=== PATIENT | female | born 2000 | race Caucasian/White ===

== ENCOUNTER 2024-12-12 08:18 | Inpatient (IN) ==
[2024-12-12] MEDS ORDERED: OXYTOCIN 30 UNITS/NSS 30 UNITS/500 ML BAG IV PRN (08:52)
[2024-12-12] MEDS ORDERED: LACTATED RINGER'S 1,000 ML IV PRN (08:52)
[2024-12-12] MEDS ORDERED: LIDOCAINE 1% LOCAL 20 ML VIAL INFIL PRN (08:52)
[2024-12-12 09:43] LABS: Hematocrit (blood only) 34.9 % (37.0-47.0); Mean Corpuscular Hemoglobin 29.1 pg (25.0-34.0); Mean Corpuscular Hgb Conc 34.4 g/dL (32.0-36.0); Mean Corpuscular Volume 84.7 fL (80.0-100.0); Mean Platelet Volume 12.5 fL (9.4-12.4); Platelet Count 220 K/uL (130-400); RDW Coefficient of Variation 13.7 % (11.5-14.5); RDW Standard Deviation 42.5 fL (36.4-46.3); Red Blood Count 4.12 M/uL (4.20-5.40)
[2024-12-12] MEDS ORDERED: oxyCODONE/ACETAMINOPHEN 5mg/325mg TAB PO PRN (12:51)
[2024-12-12] MEDS ORDERED: bisacodyL 10 MG SUPP PR PRN (12:51)
[2024-12-12] MEDS ORDERED: HYDROCORTISONE ACETATE 25 MG SUPP PR PRN (12:51)
--- NOTE | 2024-12-12 12:52 | Delivery Summary ---
Vaginal Delivery Summary Date of Service December 12, 2024 Vaginal Delivery Summary and 2nd Degree LAC at 36+6 with PPROM and spont labor. Unmedicated delivered with one push in OA position. Clear fluid, loose body cord. Easy delivery, no excess force, live vigorous male infant. Cord clamped and cut. Cord blood obtained. Placenta removed with traction. Oxytocin infusion started. 2nd degree tear repaired with lidocaine then 3-0 vicrul. QBL per nursing. Sponge and instrument counts correct [facility] Vaginal Delivery Charge Delivery Type Details: and 2nd Degree LAC
[2024-12-12] MEDS: OXYTOCIN 30 UNITS/NSS 30 UNITS/500 ML BAG IV PRN (13:03)
[2024-12-12] MEDS: LABETALOL HCL 200 MG TAB PO ONE (15:00)
[2024-12-12] MEDS: ACETAMINOPHEN 325 MG TAB PO PRN (15:47)
[2024-12-12] MEDS: IBUPROFEN 600 MG TAB PO PRN (15:47)
[2024-12-12] MEDS: DIPHTHER/TETAN/PERTUS Vaccine (Tdap, Adol/Adult) 0.5mL IM ONE (16:05)
[2024-12-12] MEDS: LACTATED RINGER'S 1,000 ML IV SCH (17:45)
[2024-12-12] MEDS: LABETALOL HCL 200 MG TAB PO SCH (21:16)
[2024-12-12] MEDS: DOCUSATE SODIUM 100 MG CAP PO SCH (21:16)
[2024-12-13] MEDS: CALCIUM CARBONATE 500 MG CHEWABLE TAB PO PRN (04:52)
[2024-12-13] MEDS: BENZOCAINE 20% SPRY 85 APPLN/85 GM CAN EXT PRN (06:46)
[2024-12-13 07:07] LABS: Hematocrit (blood only) 27.7 % (37.0-47.0); Hemoglobin 9.4 g/dl (12.0-16.0); Mean Corpuscular Hemoglobin 28.9 pg (25.0-34.0); Mean Corpuscular Hgb Conc 33.9 g/dL (32.0-36.0); Mean Corpuscular Volume 85.2 fL (80.0-100.0); Mean Platelet Volume 12.5 fL (9.4-12.4); Platelet Count 184 K/uL (130-400); RDW Standard Deviation 43.6 fL (36.4-46.3); Red Blood Count 3.25 M/uL (4.20-5.40); White Blood Count 14.43 K/ul (4.8-10.8)
[2024-12-13] MEDS: PRENATAL VITAMIN 1 TAB PO SCH (08:59)
--- NOTE | 2024-12-13 09:31 | Obstetrical Progress Note ---
Date of Service December 13, 2024 Assessment & Plan (1) Obesity affecting , antepartum: PPD 1 cont current care, monitor BP Subjective Ambulation: ambulating normally Voiding: no voiding problems Passing Gas:: Yes Diet Tolerance:: regular diet Lochia:: Small Physical Exam Constitutional WD/WN, vitals as above well developed and well nourished Respiratory normal respiratory effort, lungs clear to auscultation normal respiratory effort Cardiovascular RRR, no murmur, no edema Gastrointestinal (Abdomen) normal bowel sounds, soft, nontender, no hepatosplenomegaly Results & Data Vital Signs (Past 12 Hours) Vital Signs Temp Pulse Resp BP Pulse Ox O2 Del Method 12/13/24 07:45 97.5 F L 77 16 134/89 97 Room Air 12/13/24 04:00 98.6 F 89 18 134/81 Room Air 12/12/24 23:01 97.9 F 87 87 H 114/75 96 Room Air
[2024-12-13] MEDS: bisacodyL 5 MG TABEC PO SCH (20:08)
[2024-12-14 06:18] LABS: Hematocrit (blood only) 27.8 % (37.0-47.0); Hemoglobin 9.3 g/dl (12.0-16.0)
[2024-12-14 06:55] VITALS: RESP 18
--- NOTE | 2024-12-14 07:08 | Obstetrical Progress Note ---
Date of Service December 14, 2024 Assessment & Plan (1) Encounter for assessment: Plan: Patient is PPD 2 s/p and doing well - Eating well, voiding well, ambulating well - vitals reviewed and within normal limits - pain well controlled with analgesics - OOB, ambulation, diet progression as tolerated - Blood type: A+, GBS neg, rubella immune - Plan to discharge today - After discharge, 6 week follow up with [facility] Admission and Anticipated Discharge Date Admission Date: December 12, 2024 Supervising Physician Co-Signing Physician Notes Resident Physician Supervision Note: I interviewed and examined the patient. Discussed with [Name of resident] and agree with findings and plan as documented in the note. Any exceptions or clarifications are listed here: [None] Documented By: Grace Poe MD, FACOG Subjective 24 yo post- day 2 s/p Ambulation: ambulating normally Voiding: no voiding problems Passing Gas:: Yes Diet Tolerance:: regular diet Lochia:: Small Feeding Type:: bottle feeding Current Pain Level:0-1/10 Resting comfortably this AM in NAD. Denies MICHELLE, CP, SOB, N/V/D, LE pain/swelling. Physical Exam Physical Exam: General: patient resting comfortably, NAD, non-toxic in appearance, answers questions appropriately. Skin: warm, dry, intact HEENT: NC/AT, anicteric sclera, conjunctiva without injection, moist mucus membranes. Heart: +S1/S2, regular, no m/r/g Lungs: equal air entry bilaterally, no rales/rhonchi/wheezes Abd: +BS, soft, NT/ND, uterine fundus firm at umbilicus Ext: warm, no clubbing/cyanosis or edema Neuro: nonfocal, speech intact, no facial droop, moving all extremities. Results & Data Vital Signs (Past 12 Hours) Vital Signs Temp Pulse Resp BP Pulse Ox O2 Del Method 12/13/24 23:50 36.5 C 85 18 127/80 97 Room Air 12/13/24 19:55 36.4 C L 92 H 16 132/86 97 Room Air Resident Activity Tracking Resident Involvement: Resident Care Provided Care Provided: OB Delivery
[2024-12-14 09:50] VITALS: PULSE 90; TEMP 97.5; O2SAT 95
[2024-12-14 10:36] VITALS: BP 146/78
== END 2024-12-14 12:10 | disposition home or self-care (01) | DRG 807 ==
LOC: OPB 08:18 → 4S1 08:23 → 4E2 16:12